=== PATIENT | female | born 1945 | race Two or more races ===

== ENCOUNTER 2019-08-21 04:50 | Day surgery (SDC) | payer OTHER ==
[~2019-08-21 04:50] MED LIST: CALCIUM + D3 E1 EACH; OMEGA 3 1,0001 EACH; PRAVASTATIN SOD20 MG; VITAMINA D
[2019-08-21] MEDS ORDERED: PERCOCET 5-3251 EACH PO (09:30)
[2019-08-21] MEDS ORDERED: SURFAK240 M1 PO (09:30)
== END 2019-08-21 14:36 | disposition home or self-care (01) ==
LOC: CIR.AMB 04:50
DX: N81.3 Complete uterovaginal prolapse (principal)

== ENCOUNTER 2023-03-15 06:23 | Day surgery (SDC) | payer OTHER ==
[~2023-03-15] VITALS: Ht 152.4 cm; Wt 68.5 kg
[~2023-03-15 06:23] MED LIST changes: +NORVASC2.5 MG PO; +PERCOCET 5-3251 EACH PO; -PRAVASTATIN SOD20 MG; +PRAVASTATIN SOD20 MG PO; +SURFAK240 M1 PO; +TERAZOSIN HCL1 M1 PO
[2023-03-15] MEDS ORDERED: CIPRO500 MG PO (12:20)
[2023-03-15] MEDS ORDERED: IBU600 MG PO (12:20)
== END 2023-03-15 15:10 | disposition home or self-care (01) ==
LOC: CIR.AMB 06:23
PROVIDERS: ATTEND Obstetrics & Gynecology Gynecology
DX: N81.12 Cystocele, lateral (principal); Z20.822 Contact with and (suspected) exposure to COVID-19; I10 Essential (primary) hypertension; M19.90 Unspecified osteoarthritis, unspecified site